=== PATIENT | female | born 1995 | race Caucasian/White ===

== ENCOUNTER 2018-01-24 22:37 | Emergency (ER) | payer SELFPAY ==
[~2018-01-24] VITALS: Ht 147.3 cm; Wt 61.2 kg
--- NOTE | 2018-01-24 22:43 | NUR ---
PT AMBULATED TO ER BED 2
--- NOTE | 2018-01-24 22:44 | NUR ---
22/F CAME IN W C/O RUQ 9/10 SHARP PAIN X 3 DAYS. ABD SOFT, ROUND, -TENDERNESS, BS ACTIVE X4. DENIES N/V/D, DYSURIA/HEAMTURIA, VAG BLEEDING. PMH:APPENDECTOMY
--- NOTE | 2018-01-24 22:44 | NUR ---
PT BEDSIDE TRIAGED IN ED BED 2, REPORT GIVEN TO LUIS ALBERTO DON
[2018-01-24 22:46] VITALS: BP 133/85
--- NOTE | 2018-01-24 23:10 | NUR ---
PT TAKEN TO XRAY
[2018-01-24 23:13] LABS: BILIRUBIN,URINE NEGATIVE (NEGATIVE); BLOOD, URINE NEGATIVE (NEGATIVE); LEUKOCYTE ESTERASE ,URINE 1+ (NEGATIVE); NITRITE, URINE NEGATIVE (NEGATIVE); PH,URINE 7.5 (5.0-9.0); UGLUCOSE NEGATIVE (NEGATIVE)
[2018-01-24 23:22] LABS: APPEARANCE,URINE CLOUDY (CLEAR); COLOR,URINE YELLOW (YELLOW)
[2018-01-24 23:23] LABS: RBC,URINE 0-5 (RARE) /HPF (0-5)
[2018-01-24 23:49] VITALS: BP 129/88
--- NOTE | 2018-01-24 23:49 | NUR ---
Patient discharged with v/s stable. Written and verbal after care instructions given and explained. Patient alert, oriented and verbalized understanding of instructions. Ambulatory with steady gait. All questions addressed prior to discharge. ID band removed. Patient advised to follow up with PMD. Rx of MOTRIN, CIPROFLOXACIN, MINERAL OIL, MIRALAX given. Patient educated on indication of medication including possible reaction and side effects. Opportunity to ask questions provided and answered.
== END 2018-01-24 23:49 | disposition home or self-care (01) ==
LOC: MED 22:37
DX: N39.0 Urinary tract infection, site not specified (principal); Z90.89 Acquired absence of other organs; Z88.1 Allergy status to other antibiotic agents
CPT/HCPCS: 74022; 81001; 81025; 87086; 87186; 99285